=== PATIENT | male | born 1955 | race Caucasian/White ===

== ENCOUNTER → 2019-03-15 | Outpatient (CLI) | payer OTHER | LOC: CAT 12:12 | DX: Z13.6 Encounter for screening for cardiovascular disorders (principal); E78.00 Pure hypercholesterolemia, unspecified; I25.10 Atherosclerotic heart disease of native coronary artery without angina pectoris ==

== ENCOUNTER → 2019-07-11 | Outpatient (CLI) | payer OTHER ==
[~2019-07-11] VITALS: Ht 175.3 cm; Wt 101.6 kg
[~2019-07-11] MED LIST: AMBIEN 10 MG TA10 MG PO; BISOPROLOL-HCT1 EACH PO; HYDROCODON-ACE1 EAC8 PO; LIPITOR 20 MG T20 M1 PO; MELATONIN PO; PRINIVIL5 MG PO
--- NOTE | ~2019-07-11 | HPC ---
[facility] [place] [address] PAIN MANAGEMENT CONSULTATION Name: ROCCO WELLS Room #: REG JOSE Godwin.#: [id number] Admission: 07/11/19 Attend Phys: Guille Rand MD Discharge: Date of : 53 Report #: [id number] THIS REPORT FOR: cc: Kvng Shepard MD, Stanley P. MD Morgan, Richard L. MD ~ CC: Guille Shepard MD DATE OF SERVICE: 07/11/2019 CHIEF COMPLAINT: Cervicalgia with radiation into the left arm and chronic low back pain. I am seeing the patient at the request of Dr. Kvng Shepard for evaluation of chronic pain. 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 His neck pain is described as a deep burning sensation to the left of midline and localized. There is some radiation into the occiput. There is also mid cervical spine gnawing pain, which has been treated in prior pain clinic while living in [place]. He has had epidural injections as well as medial branch rhizotomy with radiofrequency. Duration of response from those treatments was modest. He says that the pain is worse with flexion and neck extension. He has been using [place] balm manipulation and has used small amounts of hydrocodone in combination with nonsteroidal anti-inflammatory drugs cautiously watching for side effects from each medication. We discussed opioids, which will be reviewed at the end of this dictation. Current pain score is a 4-5 on an average day. Pain can be as bad as a 7-8 interfere with sleep. MEDICATIONS: Lisinopril, bisoprolol, hydrochlorothiazide, atorvastatin, zolpidem, hydrocodone 7.5/325 one-half to one tablet taken 2-3 times daily provided by Dr[address] Shepard under terms of written opioid agreement and melatonin 5 mg nightly. ALLERGIES: None. PAST MEDICAL HISTORY: Significant for hypertension and gastritis. He is cautious with nonsteroidal anti-inflammatory drugs because of this. He had one surgery on his left wrist in 1979 and it remains fused in a neutral position. SOCIAL HISTORY: He is , recently moved to [place] to be closer to [address] [place] [address] [place] [address] PAIN MANAGEMENT CONSULTATION Name: ROCCO WELLS Room #: REG [facility]#: [id number] Admission: 07/11/19 Attend Phys: Guille Rand MD Discharge: Date of : 53 Report #: [id number] children who live in [place]. He denies use of tobacco or alcohol, although he has used both in the past. Tries to exercise some and remains active. His impacted pain score is 37/70, considered modest impact. He did complete an opioid risk tool and scored 0 suggesting low risk for addiction. PHYSICAL EXAMINATION: GENERAL: He is a very pleasant 64-year-old gentleman. VITAL SIGNS: Blood pressure 148/93, heart rate 60, respirations 18, O2 sat is 100%. His BMI is 33.3. He can move easily and independently from sitting to standing position. His gait is nonantalgic. HEENT: Normal. Pupils are equal, round, reactive to light. EOMs are intact. Mucous membranes are moist. NECK: Supple. There is some tenderness posteriorly along the splenius capitis and cervicalis. Minimal pain along the occiput. Rotation of the neck is limited as well as lateral tilt by about 25%. He has increasing pain with neck extension and reports crepitus with all movements. CHEST: Clear. CARDIAC: Rhythm is regular with no audible murmur. ABDOMEN: Soft. MUSCULOSKELETAL: Examination of the lower extremities is normal. NEUROLOGIC: Reveals normal sensation in the upper and lower extremities. Strength is also normal throughout. Deep tendon reflexes are 1-2+ at the biceps, diminished to trace at the triceps. Brachioradialis is also diminished to trace. Sensation is normal throughout. Deep tendon reflexes in lower extremity checking for hyperreflexia are normal. MRI is reviewed. It shows reversal of normal lordosis and there are multilevel degenerative changes of the disks with osteophytes noted most severely at C5-C6 and narrowing of the left neural foramen, greatest centrally and at the level of C3-C4 without cord compression. IMPRESSION: Cervicalgia with radiculopathy. RECOMMENDATION: We discussed medication management. His current MME is around 10. This is considered quite low and his prescription drug monitoring information from [facility] reveals no unexpected entries and 1 prescriber, Dr. Shepard. He does not have a benzodiazepine on his list, but does have a zolpidem for use at night. He has tolerated these effectively. I think the use of small amounts of opioids to limit his NSAIDs given his history of gastritis is reasonable. Dr. Sheprad can manage these with monthly prescriptions following the CDC guidelines. I think this is very appropriate and reasonable. Other options include injections, which we discussed today. He has had [facility] [address] [place] [address] PAIN MANAGEMENT CONSULTATION Name: ROCCO WELLS Room #: REG CLKeshia Godwin.#: [id number] Admission: 07/11/19 Attend Phys: Guille Rand MD Discharge: Date of : 53 Report #: [id number] epidurals as well as radiofrequency ablation, which he did not think much of. I would suggest an epidural injection for radicular symptoms in the future if pain worsens. He does not want an injection today. Followup visit planned only as needed. Total time spent with the patient about 45 minutes. By: [id number] Guille Rand MD /nt
[2019-07-11 09:45] VITALS: BP 148/93
--- NOTE | 2019-07-11 10:03 | NUR ---
Pain Clinic Assessment: 1. History of Osteoarthritis: B/L HANDS SI B/L HIPS History of Rheumatoid Arthritis: NONE 2. Height: 5 ft. 9 in. 175.3 cm. Weight: 224.0 lb. oz. 101.606 kg. Patient's BMI: 33.1 3. Vital Signs: BP: 148/93 Pulse: 60 Resp: 18 Temp: 02 Sat: 100 ECG Mon: 4. Pain Intensity: 4-5-AVG 5. Fall Risk: Dizziness: N Needs help standing or walking: N Fallen in the last 3 months: N Fall risk comments: 6. Patient on Blood Thinner: None 7. History of Hypertension: Y 8. Opioid Therapy greater than 6 weeks: Opiate Contract Signed: 9. Risk Assessment Tool Provided: LOW 10. Functional Assessment Tool: 11. Recreational Drug Use: Never Drug Type: Tobacco Use: Never Smoker Tobacco Type: Amount or Packs/day: How Many Years: Alcohol Use: No Frequency: Quant:
== END ==
LOC: PAIN 06:45
DX: M54.12 Radiculopathy, cervical region (principal); M54.5 Low back pain; G89.29 Other chronic pain; I10 Essential (primary) hypertension

== ENCOUNTER → 2019-11-26 | Outpatient (CLI) | payer OTHER | LOC: SJCVC 10:55 | PROVIDERS: ATTEND Internal Medicine Cardiovascular Disease | DX: I44.0 Atrioventricular block, first degree (principal); R00.1 Bradycardia, unspecified; I10 Essential (primary) hypertension; E78.5 Hyperlipidemia, unspecified; I71.4 Abdominal aortic aneurysm, without rupture; Z79.899 Other long term (current) drug therapy; Z87.891 Personal history of nicotine dependence ==

== ENCOUNTER → 2020-07-03 | Outpatient (CLI) | payer OTHER | LOC: SJCVCINTER 08:29 → SJCVCIMAG 08:31 | PROVIDERS: ATTEND Internal Medicine Cardiovascular Disease | DX: I44.0 Atrioventricular block, first degree (principal); I71.4 Abdominal aortic aneurysm, without rupture; I10 Essential (primary) hypertension; E78.5 Hyperlipidemia, unspecified; R93.1 Abnormal findings on diagnostic imaging of heart and coronary circulation; Z87.891 Personal history of nicotine dependence; Z79.82 Long term (current) use of aspirin; Z79.899 Other long term (current) drug therapy ==

== ENCOUNTER → 2021-01-26 | Outpatient (CLI) | payer OTHER | LOC: SJCVC 10:13 | PROVIDERS: ATTEND Internal Medicine Cardiovascular Disease | DX: R94.31 Abnormal electrocardiogram [ECG] [EKG] (principal); R93.1 Abnormal findings on diagnostic imaging of heart and coronary circulation; I10 Essential (primary) hypertension; E78.5 Hyperlipidemia, unspecified; I71.4 Abdominal aortic aneurysm, without rupture; R06.02 Shortness of breath; G89.29 Other chronic pain; Z78.9 Other specified health status; Z79.82 Long term (current) use of aspirin; Z79.899 Other long term (current) drug therapy; Z87.891 Personal history of nicotine dependence ==

== ENCOUNTER → 2021-02-23 | Outpatient (CLI) | payer OTHER | LOC: SJCVCIMAG 08:09 | PROVIDERS: ATTEND Internal Medicine Cardiovascular Disease | DX: I10 Essential (primary) hypertension (principal); I25.10 Atherosclerotic heart disease of native coronary artery without angina pectoris; R06.00 Dyspnea, unspecified; I25.5 Ischemic cardiomyopathy; E78.00 Pure hypercholesterolemia, unspecified; I51.3 Intracardiac thrombosis, not elsewhere classified; Z95.810 Presence of automatic (implantable) cardiac defibrillator ==